=== PATIENT | male | born 1970 | race Caucasian/White ===

== ENCOUNTER 2020-05-17 19:36 | Emergency (ER) | payer SELFPAY ==
[2020-05-17 19:47] VITALS: BP 131/78; PULSE 101; RESP 18; TEMP 36.6; O2SAT 95; BMI 27.8
--- NOTE | 2020-05-17 19:47 | XR_ITS ---
WS: [id number] XR hand RT min 3V* [id number] REASON FOR EXAM: lac to right hand hand thenar region FINDINGS: Degenerative arthropathy with joint space narrowing and subchondral sclerosis and mild lateral sublux ation of the first metacarpal is seen in the carpal metacarpal joint and the metacarpophalangeal join t of the thumb. Otherwise, the joint spaces of the right hand are intact. No focal bony abnormalities identified. No radiopaque soft tissue abnormality noted. XR/XR hand RT min 3V* [id number] IMPRESSION: No acute abnormality. Degenerative arthropathy in the thumb.
--- NOTE | 2020-05-17 19:48 | ED_ITS ---
HPI - Wound/Laceration General: Chief Complaint: Wound/Laceration Stated Complaint: RIGHT HAND LAC Time Seen by Provider: 05/17/20 19:38 History of Present Illness: HPI narrative: Patient is a 49-year-old male comes to the ED with a laceration to right hand. Injury occurred approximately 1 hour prior to arrival. Patient says [place] and when he went down to the ground he had his right arm extended out in his hand hit the ground and something sharp cut his right hand. He is unaware of what the object was that cut his hand. He then went back home and rinsed his hand and cut with warm water. Patient says he needs an updated tetanus shot. Patient did say that he is currently on a blood thinner, Eliquis for A. fib. Associated symptoms: Denies chills, fever(s), nausea or vomiting Review of Systems Const: Denies: fever(s), chills or fatigue Eyes: Denies: change in vision or eye discomfort ENMT: Denies: throat pain, odynophagia, nasal discharge or nasal congestion Card: Denies: chest pain, palpitations, edema, swelling of feet/ankles, dyspnea on exertion or orthopnea Resp: Denies: dyspnea, productive cough or non-productive cough GI: Denies: abdominal pain, nausea, vomiting, diarrhea, constipation or hematochezia : Denies: flank pain, difficulty urinating, dysuria or hematuria Musc: Denies: neck pain, back pain or extremity swelling Skin/Breast: Reports: new lesions (laceration on thenar region of right hand.); Denies: rash Neuro: Denies: headache(s), numbness in extremities or weakness in extremities Physical Exam Const: COMMON NORMALS: no acute distress, patient oriented x3, healthy appearing and alert GENERAL APPEARANCE: cooperative and comfortable HENMT: COMMON NORMALS: normocephalic HEAD & SCALP: normocephalic MOUTH: Normal oral and palatal mucosa present THROAT: posterior oropharynx normal and uvula midline Neck/C-Spine: COMMON NORMALS: supple GENERAL: Yes normal visual inspection Resp: COMMON NORMALS: normal respiratory effort, No retractions, No use of accessory muscles and clear to auscultation bilaterally AUSCULTATION: clear to auscultation bilaterally Cardio: COMMON NORMALS: regular rate, regular rhythm, S1 normal heart sound present, S2 normal heart sound present, No gallops present (Cardio), No clicks present (Cardio), No murmurs present (Cardio) and Peripheral pulses 2+ throughout RATE: regular rate RHYTHM: regular rhythm HEART SOUNDS: S1 normal heart sound present and S2 normal heart sound present PERIPHERAL PULSES: Peripheral pulses 2+ throughout GI: COMMON NORMALS: Normal to inspection, nondistended, normoactive bowel sounds present, Soft to palpation, non-tender and no masses PALPATION: Yes Soft to palpation : COMMON NORMALS: Yes no CVA tenderness BLADDER/KIDNEY EXAM: Yes no CVA tenderness Back/Pelvis: COMMON NORMALS: no CVA tenderness Extremity: NARRATIVE EXTREMITY EXAM: 1.5 cm linear laceration to thenar region of right hand. Laceration has minimal active bleeding. No contamination seen no foreign body seen. GENERAL: Yes normal exam except as noted Neuro: COMMON NORMALS: patient oriented x3 and moves all extremities SENSORIUM/ORIENTATION: Yes alert Skin: NARRATIVE SKIN EXAM: 1.5 cm linear laceration to thenar region of right hand. Laceration has minimal active bleeding. No contamination seen no foreign body seen. Procedures Laceration Laceration 1: Site: hand (Thenar region) Side (If applicable): right Size (cm): 1.5 Description: linear and clean Depth: simple, single layer Local Anesthetic: lidocaine 1% and with epi Amount of anesthesia used (mL): 10 Pre-repair: irrigated extensively Size (cm): 4-0 Number of sutures: 6 Technique: simple, interrupted Course Vital Signs: Vital signs: Vital Signs Temperature 97.9 F 05/17/20 19:47 Pulse Rate 102 H 05/17/20 21:35 Respiratory Rate 18 05/17/20 21:35 Blood Pressure 131/72 05/17/20 21:35 Pulse Oximetry 98 05/17/20 21:35 MDM - Wound/Laceration MDM Narrative: Medical decision making narrative: Patient is a 49-year-old male comes to the ED with a laceration to thenar region of right hand. Patient says he was [place] and [place]pped falling to the ground and when he caught himself with his right hand he has some pain sharp cause laceration. Exam shows approximately 1.5 cm linear laceration to thenar region of right hand. No contamination or foreign body seen. There is active bleeding. I was able to irrigate and clean wound with normal saline and wiped it with a CHG swab. Lidocaine 1% with epi was used as local and I was able to get the bleeding to stop. I then placed 6 sutures to close the wound. Right hand x-ray showed no fractures or foreign body seen. Patient was given an updated tetanus shot while here and a dose of Bactrim. Patient was discharged home and given laceration care instructions. He was sent with a prophylactic prescription of Bactrim. Return to ED precautions given. Follow-up to get sutures removed in 7 to 10 days. Patient understood and agreed with plan. Imaging Data^: Xray Ortho: Attestation: I personally reviewed and interpreted this imaging study as follows: My impression: Right hand x-ray?no fractures or foreign body seen. Discharge Plan Discharge Patient Disposition: Home Clinical Impression: Hand laceration Qualifiers: Encounter type: initial encounter Foreign body presence: without foreign body Laterality: right Qualified Code(s): S61.411A - Laceration without foreign body of right hand, initial encounter Condition: Stable Prescriptions: New Bactrim DS 800-160 mg tablet 1 tab PO BID 4 Days Qty: 8 RF: 0 No Action Aspir-81 81 mg Tablet,Delayed Release (Dr/Ec) 81 mg PO DAILY RF: 0 Eliquis See Rx Instructions .ROUTE .COMPLEX RF: 0 Discharge Orders: Discharge ED (Routine); Ordered 05/17/20 Ordered By: Vasquez [place] Discharge Diet: Regular Discharge Activity: Limit activity as instructed Patient Instructions: Laceration (ED) Activity Restrictions/Additional Instructions: Take full course of antibiotics as prescribed. Keep laceration site clean and dry for the next 48 hours. Then after that you can clean and re-bandage daily. Watch for signs of infection such as redness, warmth, increased tenderness and puslike drainage. If you see the signs of infection return to the ED, urgent care or PCP for reevaluation. call your PCP to schedule a follow-up appointment for reevaluation and suture removal in about 10 days. Continue taking all home meds. Follow discharge plans as discussed. You can return to the ED if symptoms worsen. Coding Level of Care Code ED Piano Player for Hayley Romo Exam Comprehensive
[2020-05-17 19:53] VITALS: BP 131/78; PULSE 110; RESP 17; O2SAT 95
[2020-05-17] MEDS: tetanus-dipt-pertussis 0.5 mL SDV IM (20:08)
[2020-05-17] MEDS: HYDROcodone-acetaminophen 7.5-325 mg Tablet 1 TAB PO (20:16)
--- NOTE | 2020-05-17 20:55 | XR_ITS ---
WS: [id number] XR hand RT 2V [id number] REASON FOR EXAM: post suturing-hand injury FINDINGS: Degenerative arthropathy in the right thumb is noted as on the previous study. No radiopaque foreign body in the region of the soft tissue injury. Bony structures intact. XR/XR hand RT 2V [id number] IMPRESSION: Degenerative arthropathy of the right thumb with no other significant finding.
[2020-05-17] MEDS: sulfamethoxazole-trimeth DS 160-800 mg Tablet 1 TAB PO (21:19)
--- NOTE | 2020-05-17 21:32 | PC.NURSE ---
PTS HAND WAS CLEANED WITH SOAP AND WATER. IT WAS THEN DRIED AND TELFA APPLIED, THEN GAUZE AND FINALLY COBAN WAS WRAPPED TO SECURE BANDAGE. EDUCATION TO PT ON DRESSING CHANGES AND CARE
[2020-05-17 21:35] VITALS: BP 131/72; PULSE 102; RESP 18; O2SAT 98
== END 2020-05-17 21:38 | disposition home or self-care (01) ==
PROVIDERS: Emergency Provider Physician Assistant
DX: S61.411A Laceration without foreign body of right hand, initial encounter (principal); Z79.82 Long term (current) use of aspirin; Z79.01 Long term (current) use of anticoagulants; W45.8XXA Other foreign body or object entering through skin, initial encounter; Z23 Encounter for immunization
CPT/HCPCS: 12001; 73120; 73130; 90471; 90715; 99283